=== PATIENT | female | born 1985 ===

== ENCOUNTER 2019-03-26 11:00 | Emergency (ER) | payer BC, OTHER ==
[2019-03-26 11:57] VITALS: BP 124/68
--- NOTE | 2019-03-26 12:22 | UC ---
Respiratory Complaint HPI - HPI Summary HPI Summary: 29-year-old female who has had cold symptoms for the past 3 weeks and now with some sinus pressure, postnasal drainage and productive cough. She states she feels a little short of breath mostly because she gets congested and then has to cough with a lot of mucus. She denies any fever or chills. - History of Current Complaint Chief Complaint: UCRespiratory Stated Complaint: CHEST CONGESTION, SHORT OF BREATH Time Seen by Provider: 03/26/19 12:20 Hx Obtained From: Patient Hx Last Menstrual Period: 02/11/19 ?: No Onset/Duration: Gradual Onset Timing: Constant Severity Initially: Mild Severity Currently: Mild Pain Intensity: 5 Character: Cough: Productive - Productive cough of whitish yellow sputum. Aggravating Factors: Deep Breaths Alleviating Factors: Nothing Associated Signs And Symptoms: Positive: URI, Nasal Congestion, Sinus Discomfort - Allergies/Home Medications Allergies/Adverse Reactions: Allergies Allergy/AdvReac Type Severity Reaction Status Date / Time No Known Allergies Allergy Verified 03/26/19 11:58 Home Medications: Home Medications Albuterol HFA INHALER* [Ventolin HFA Inhaler*] 2 puff PO Q4H PRN 03/26/19 [ History Confirmed 03/26/19] PMH/Surg Hx/FS Hx/Imm Hx Previously Healthy: Yes - Surgical History Surgical History: None - Family History Known Family History: Positive: Non-Contributory - Social History Alcohol Use: Weekly Substance Use Type: None Smoking Status (MU): Never Smoked Tobacco Review of Systems All Other Systems Reviewed And Are Negative: Yes ENT: Positive: Nasal Discharge, Sinus Congestion, Sinus Pain/Tenderness Respiratory: Positive: Cough - Productive cough of whitish sputum. Is Patient Immunocompromised?: No Physical Exam Triage Information Reviewed: Yes Appearance: Well-Appearing, No Pain Distress, Well-Nourished Vital Signs: Initial Vital Signs Temp 98.6 F 03/26/19 11:53 Pulse 75 03/26/19 11:53 Resp 20 03/26/19 11:53 BP 124/68 03/26/19 11:53 Pulse Ox 99 03/26/19 11:53 Vital Signs Reviewed: Yes Eyes: Positive: Conjunctiva Clear ENT: Positive: Pharynx normal - Whitish yellow postnasal drainage., Nasal congestion, Nasal drainage - Whitish yellow purulent nasal coryza bilaterally., TMs normal, Sinus tenderness - Maxillary sinus tenderness bilaterally on palpation., Uvula midline Neck: Positive: Supple, Nontender, No Lymphadenopathy Respiratory: Positive: Lungs clear, Normal breath sounds, No respiratory distress, No accessory muscle use Cardiovascular: Positive: RRR, No Murmur, Pulses Normal, Brisk Capillary Refill Musculoskeletal Exam: Normal Neurological Exam: Normal Psychological Exam: Normal Skin Exam: Normal Respiratory Course/Dx - Course Course Of Treatment: Patient is comfortable here and in no distress. She talks easily with no respiratory distress. I'm going to treat her for sinus infection with Augmentin 875 mg by mouth twice a day 10 days. The patient requested not to have a chest x-ray, although her lungs are clear and with good air movement so I don't believe she has a pneumonia. - Differential Dx/Diagnosis Provider Diagnosis: Sinusitis Discharge ED - Sign-Out/Discharge Documenting (check all that apply): Patient Departure All imaging exams completed and their final reports reviewed: No Studies - Discharge Plan Condition: Good Disposition: HOME Prescriptions: Amoxicillin/Clavulanate TAB* [Augmentin TAB 875*] 875 mg PO BID 10 Days #20 tab Patient Education Materials: Sinusitis (ED) Referrals: Eric Gallardo NP [Primary Care Provider] - Additional Instructions: Increase fluids, [id number] cold medicine as we discussed and as directed. Take the Augmentin with food. Follow-up with your primary care provider in 5-6 days if no improvement. - Billing Disposition and Condition Condition: GOOD Disposition: Home
== END 2019-03-26 12:38 | disposition home or self-care (01) ==
LOC: UCEAST 11:00
DX: J32.9 Chronic sinusitis, unspecified (principal); R05 Cough
CPT/HCPCS: 99212; G0463